=== PATIENT | female | born 1955 | race Caucasian/White ===

== ENCOUNTER 2016-08-23 11:09 | Day surgery (SDC) | payer MEDICARE ==
[~2016-08-23] VITALS: Ht 160 cm; Wt 90.7 kg
[~2016-08-23 11:09] MED LIST: ATENOLOL50 MG PO; CYMBALTA30 MG PO; GABAPENTIN 100100 MG PO; HYDROCHLOROTHIA1 TAB PO; LEVOTHYROXINE0.05 MG PO; MOBIC15 MG PO; NEXIUM40 MG PO; NORCO1 TAB PO; ZETIA10 MG PO; ZYRTEC ALLERGY10 MG PO
[2016-08-23 11:37] VITALS: BP 129/87
[2016-08-23 12:08] VITALS: BP 127/71; BP 129/87
--- NOTE | 2016-08-23 12:14 | Procedure Note ---
Procedure detail Date of procedure: 08/23/16 Anesthesiologist: Jose F Sethi CRNA Complications: None Pre-procedure diagnosis: Facet arthropathy of the lumbar spine Post-procedure diagnosis: Same Indications for procedure: This patient's a pleasant 60-year-old white female returns our pain clinic after receiving 2 lumbar epidural steroid injections. She reports 90 percent improvement terms of her low back pain and bilateral hip and leg radiculopathy symptoms after her first injection. However, after the second injection patient describes no improvement. Today the patient describing low back pain as constant , dull, aching. Her radicular component is gone. Her pain seems to be very axial in nature. Her lumbar MRI shows degenerative disc disease lumbar spine multiple levels as well as multilevel lumbar facet arthropathy. Lumbar spondylosis. We will proceed with a medial branch block bilaterally two levels today. Procedure detail: Informed consent was obtained and the risk and benefits of the procedure was explained to the patient. Patient was taken to the procedure room where noninvasive monitors were placed, including noninvasive blood pressure cuff as well as pulse oximeter. The area over the lumbar spine was cleansed using chlorhexidine as a cleansing solution. I anesthetized the skin and subcutaneous tissues with 1% Lidocaine. I placed 22-gauge spinal needles into the facet joint / medial branches of [L4-L5, and L5-S1] bilaterally. Needle placement was confirmed with fluoroscopy. After confirmation of needle placement, each site was injected with 1 mL of 1% lidocaine and 0.25 % Marcaine and 10 mg of Depo- Medrol. A total of 80 mg of depo medrol was used for bilateral medial branch blocks of [ L4-L5, and L5-S1] bilaterally. Patient tolerated the procedure without difficulty. There were no complications. Plan and disposition: Patient was reevaluated today minutes post procedure. Patient reports 75 percent and premature for low back pain in flexion, extension, RIGHT and LEFT rotation. She'll follow up with us in the pain clinic for further evaluation. at 1214
[2016-08-23 12:28] VITALS: BP 127/82
== END 2016-08-23 12:28 ==
LOC: PM 11:09
PROC: 3E0T33Z Introduction of Anti-inflammatory into Peripheral Nerves and Plexi, Percutaneous Approach (ICD-10-PCS; principal; 2016-08-23)
PROC: 3E0T3BZ Introduction of Anesthetic Agent into Peripheral Nerves and Plexi, Percutaneous Approach (ICD-10-PCS; 2016-08-23)
PROC: BR161ZZ Fluoroscopy of Lumbar Facet Joint(s) using Low Osmolar Contrast (ICD-10-PCS; 2016-08-23)
DX: M54.06 Panniculitis affecting regions of neck and back, lumbar region (principal)
CPT/HCPCS: J1040

== ENCOUNTER 2017-03-13 13:19 | Day surgery (SDC) | payer MEDICARE ==
--- NOTE | 2017-03-13 16:12 | Operative Note ---
Colonoscopy ([facility]) Procedure date: 03/13/17 Date of : 55 Procedure:Colonoscopy Colonoscopy with cold snare polypectomy Indications: Mrs. Lin is a 61-year-old female who is here for diagnostic colonoscopy based upon recent positive fecal Hemoccult. The patient reports no abdominal pain, weight loss, change in her bowel habits or rectal bleeding. She reports no melena. She has no anemia. She reports no use of anticoagulation but has used nonsteroidal anti-inflammatory drugs including ibuprofen and meloxicam. She does have some chronic constipation and does take stool softeners once or twice weekly. Her last colonoscopy 11 years ago was normal. Performing Provider: Brenda Newell MD Referrring Provider: Yun Howard PA-C Sedation: Fentanyl 200 mg IV/Versed 9 mg IV Procedure: Prior to the procedure, a history and physical exam was performed, and patient medications and allergies were reviewed. The risks and benefits of the procedure and the sedation options and risks were discussed with the patient. All questions were answered and informed consent was obtained. Patient identification and proposed procedure were verified by the physician and the nurse. The patient was placed in a left lateral decubitus position. Throughout the procedure, the patient's blood pressure, pulse, and oxygen saturations were monitored continuously. Findings: On digital rectal examination there was normal rectal tone. There were no external hemorrhoids. The colonoscope was introduced through the anal canal to the rectum and advanced to the cecum. The ileocecal valve and appendiceal orifice were identified. The scope was advanced a short distance into the ileum which appeared grossly normal. The scope was then withdrawn into the colon. In the proximal to mid ascending colon was a 8 mm colon polyp that was removed via cold snare polypectomy. The remaining cecum, ascending, transverse, descending, sigmoid and rectum were grossly normal. There were no mucosal abnormalities identified. Upon retroflexion within the rectum there were very small grade 0-1 internal hemorrhoids. Impressions: 1. Ascending colon polyp Recommendations: I will follow up the polyp pathology and recommend repeat colonoscopy again in 5 -10 years based upon the polyp histology. I would encourage a fiber bowel regimen on a long-term daily maintenance basis. Complications: None EBL (ml): 0 at 1611
[2017-03-13 17:06] VITALS: BP 133/75
== END 2017-03-13 17:00 | disposition home or self-care (01) ==
LOC: SDC 13:19
PROVIDERS: Internal Medicine Gastroenterology
PROC: 0DBK8ZX Excision of Ascending Colon, Via Natural or Artificial Opening Endoscopic, Diagnostic (ICD-10-PCS; principal; 2017-03-13 14:30)
DX: D12.2 Benign neoplasm of ascending colon (principal); K64.0 First degree hemorrhoids; K92.1 Melena